=== PATIENT | male | born 1950 | race Caucasian/White ===

== ENCOUNTER 2018-07-19 15:37 | Inpatient (IN) | payer MEDICARE ==
[2018-07-19 20:44] VITALS: BMI 39.6
[2018-07-19] MEDS: oxyCODONE 10 mg Immediate Release Tab PO PRN (23:33)
[2018-07-20] MEDS: Insulin Detemir 100 Units/ml Inj SC SCH ×2 (00:07→21:23)
[2018-07-20] MEDS ORDERED: Insulin Lispro Mix 75/25 100 units/ml (HumaLog) 10ml SC SCH ×3 (07:30→16:30)
[2018-07-20] MEDS: Insulin Lispro Mix 75/25 100 units/ml (HumaLog) 10ml SC SCH ×2 (07:36→16:44)
[2018-07-20] MEDS: Insulin Regular 100 units/ml SC SCH ×4 (07:39→21:28)
[2018-07-20] MEDS: Enoxaparin 40 mg Syringe SC SCH (08:22)
[2018-07-20] MEDS: Multivitamin With Minerals Tab PO SCH (08:23)
[2018-07-20] MEDS: Calcium-Vit D 500 mg-200 Units Tab UD PO SCH (08:23)
[2018-07-20] MEDS: hydroCHLOROthiazide-Triamterene 25 mg-37.5 mg Cap UD PO SCH (08:24)
[2018-07-20] MEDS: oxyCODONE 10 mg Immediate Release Tab PO PRN ×3 (08:28→21:17)
--- NOTE | 2018-07-20 14:37 | RAD ---
Date of service: 07/20/2018 HISTORY: COMPARISON: None available. FINDINGS: BONES: Status post knee arthroplasty. JOINTS: Normal. No osteoarthritis. SOFT TISSUE: Normal. OTHER FINDINGS: None . IMPRESSION: Status post knee arthroplasty.
[2018-07-21] MEDS: Insulin Lispro Mix 75/25 100 units/ml (HumaLog) 10ml SC SCH ×2 (07:05→17:20)
[2018-07-21] MEDS: Insulin Regular 100 units/ml SC SCH ×4 (07:06→21:46)
[2018-07-21 08:24] LABS: HEMOGLOBIN 9.6 g/dL (12.0-18.0); MEAN CELL VOLUME 84.9 fl (80.0-94.0); MEAN CORPUSCULAR HEMOGLOBIN 28.5 pg (27.0-31.0); MEAN CORPUSCULAR HGB CONC 33.6 g/dL (33.0-37.0); RBC 3.38 Mil/uL (4.40-5.90); RED CELL DISTRIBUTION WIDTH 14.2 % (11.5-14.5); WHITE BLOOD COUNT 10.9 K/uL (4.8-10.8)
[2018-07-21 08:37] LABS: BLOOD UREA NITROGEN 15 mg/dl (9-20); CALCIUM 8.7 mg/dL (8.4-10.2); GFR NON-AFRICAN AMERICAN > 60
[2018-07-21] MEDS: oxyCODONE 10 mg Immediate Release Tab PO PRN ×3 (09:17→19:58)
[2018-07-21] MEDS: Enoxaparin 40 mg Syringe SC SCH (09:19)
[2018-07-21] MEDS: Multivitamin With Minerals Tab PO SCH (09:20)
[2018-07-21] MEDS: hydroCHLOROthiazide-Triamterene 25 mg-37.5 mg Cap UD PO SCH (09:20)
[2018-07-21] MEDS: Calcium-Vit D 500 mg-200 Units Tab UD PO SCH (09:20)
[2018-07-21] MEDS ORDERED: Alum-Mag Hydrox-Simethicone Susp (30 mL) PO PRN (16:49)
[2018-07-21] MEDS ORDERED: Potassium Chloride 20 mEq ER Tab PO ONE (17:23)
[2018-07-21] MEDS: Pantoprazole 40 mg EC Tab PO SCH (17:34)
--- NOTE | 2018-07-21 18:45 | HP ---
HISTORY OF PRESENT ILLNESS: This is a 67-year-old [place]ian male with history of multiple medical problems who underwent left total knee replacement and admitted to transitional care unit for rehabilitation. The patient denied to have any chest pain or shortness of breath. The patient had an uneventful postoperative course. REVIEW OF SYSTEMS: Other review of system is negative. ALLERGIES: NO KNOWN ALLERGIES. MEDICATIONS: Medications were reviewed as per MAR and ordered. SOCIAL HISTORY: Denied history of smoking, EtOH, or substance abuse. FAMILY HISTORY: Noncontributory. PAST MEDICAL HISTORY: Type 2 diabetes mellitus, hypertension, hypercholesterolemia, morbid obesity, and osteoarthritis. PHYSICAL EXAMINATION: GENERAL: The patient is in bed, not in any cardiopulmonary distress. VITAL SIGNS: Blood pressure 132/79, temperature 98.4, respiratory rate 20, and pulse 103. HEENT: Pupils equal, reactive to light. Normal-appearing mucosa of the conjunctivae, oropharynx and nasal membrane mucosa. NECK: Supple. No JVD. No carotid bruit. No lymph node. No thyromegaly. CHEST AND LUNGS: Bilateral symmetrical expansion. Good air exchange. No rales, no rhonchi. CARDIOVASCULAR: PMI not localized. S1, S2. No additional sounds. ABDOMEN: Normoactive bowel sounds. No tenderness. No organomegaly. No masses. EXTREMITIES: No cyanosis, no clubbing, no edema. Left knee is surgically dressed and in a knee brace. STRUCTURAL TECHNICIAN: Alert, awake, oriented x3 and no neurological deficit could be appreciated. ASSESSMENT: Status post left total knee replacement, hypertension, type 2 diabetes mellitus, hypercholesterolemia, morbid obesity, and osteoarthritis. PLAN: Continue current medications including the DVT prophylaxis and pain management. Accu-Cheks with insulin coverage as needed. Shabnam Waddell MD
[2018-07-21 19:08] LABS: ALB/GLOB RATIO 1.2 (1.0-2.1); ALBUMIN 4.3 g/dL (3.5-5.0); ALT/SGPT 38 U/L (21-72); AST/SGOT 45 U/L (17-59); BLOOD UREA NITROGEN 20 mg/dl (9-20); CALCIUM 9.3 mg/dL (8.4-10.2); GFR NON-AFRICAN AMERICAN > 60
[2018-07-21] MEDS: Insulin Detemir 100 Units/ml Inj SC SCH (21:49)
[2018-07-22] MEDS: Insulin Lispro Mix 75/25 100 units/ml (HumaLog) 10ml SC SCH ×2 (07:06→17:28)
[2018-07-22] MEDS: Insulin Regular 100 units/ml SC SCH ×4 (07:09→21:59)
[2018-07-22 08:15] VITALS: RESP 20
[2018-07-22] MEDS: Enoxaparin 40 mg Syringe SC SCH (09:17)
[2018-07-22] MEDS: Calcium-Vit D 500 mg-200 Units Tab UD PO SCH (09:18)
[2018-07-22] MEDS: Multivitamin With Minerals Tab PO SCH (09:19)
[2018-07-22] MEDS: hydroCHLOROthiazide-Triamterene 25 mg-37.5 mg Cap UD PO SCH (09:21)
[2018-07-22] MEDS: oxyCODONE 10 mg Immediate Release Tab PO PRN ×3 (09:25→23:49)
[2018-07-22] MEDS: Pantoprazole 40 mg EC Tab PO SCH (09:25)
--- NOTE | 2018-07-22 11:35 | CP.PCM.PN ---
Subjective - Date & Time of Evaluation Date of Evaluation: 07/22/18 Time of Evaluation: 08:00 - Subjective Subjective: Patient seen and examined at bedside comfortable. Pain well controlled. Tolerating PT well. No new complaints. Denies CP/SOB/fever/MIGUEL. Objective - Vital Signs/Intake and Output Vital Signs (last 24 hours): Temp Pulse Resp BP Pulse Ox 97.6 F 96 H 20 130/64 98 07/22/18 08:14 07/22/18 09:20 07/22/18 08:14 07/22/18 09:20 07/22/18 08:14 - Medications Medications: Current Medications Acetaminophen (Tylenol 325mg Tab) 650 mg PO Q6 PRN PRN Reason: Fever 101 and above Last Admin: 07/19/18 23:31 Dose: 650 mg Al Hydrox/Mg Hydrox/Simethicone (Maalox Plus 30 Ml) 30 ml PO Q12 PRN PRN Reason: Indigestion / Heartburn Last Admin: 07/21/18 17:19 Dose: 30 ml Amlodipine Besylate (Norvasc) 5 mg PO DAILY [facility] Last Admin: 07/22/18 09:20 Dose: 5 mg Atorvastatin Calcium (Lipitor) 20 mg PO HS [facility] Last Admin: 07/21/18 21:50 Dose: 20 mg Calcium/Vitamin D (Oyster Shell Calcium/Vitamin D 500 Mg-200 Iu) 1 tab PO DAILY [facility] Last Admin: 07/22/18 09:18 Dose: 1 tab Docusate Sodium (Colace) 100 mg PO BID [facility] Last Admin: 07/22/18 09:18 Dose: 100 mg Enalapril Maleate (Vasotec) 10 mg PO DAILY [facility] Last Admin: 07/22/18 09:18 Dose: 10 mg Enoxaparin Sodium (Lovenox) 40 mg SC DAILY [facility]; Protocol Last Admin: 07/22/18 09:17 Dose: 40 mg Finasteride (Proscar) [address] [facility] Last Admin: 07/21/18 21:50 Dose: 5 mg Insulin Detemir (Levemir) [address] [facility] Last Admin: 07/21/18 21:49 Dose: 20 units Insulin Human Regular (Humulin R) 0 units SC [facility]; Protocol Last Admin: 07/22/18 07:09 Dose: 3 units Insulin Lispro Protam/Lispro Human (Humalog Mix 75/25) 35 units SC ACD [facility] Last Admin: 07/21/18 17:20 Dose: 35 units Insulin Lispro Protam/Lispro Human (Humalog Mix 75/25) 10 units SC ACB [facility] Last Admin: 07/22/18 07:06 Dose: 10 units Lactulose (Enulose) 20 gm PO DAILY [facility] Last Admin: 07/22/18 09:20 Dose: 20 gm Metformin HCl (Glucophage) 850 mg PO TIDWM [facility] Last Admin: 07/22/18 08:30 Dose: 850 mg Multivitamins/Minerals (Therapeutic-M Tab) 1 tab PO DAILY [facility] Last Admin: 07/22/18 09:19 Dose: 1 tab Oxycodone HCl (Oxycodone Immediate Release Tab) 10 mg PO Q4H PRN PRN Reason: Pain, moderate (4-7) Last Admin: 07/22/18 09:25 Dose: 10 mg Pantoprazole Sodium (Protonix Ec Tab) 40 mg PO DAILY [facility] Last Admin: 07/22/18 09:25 Dose: 40 mg Sitagliptin Phosphate (Januvia) 100 mg PO DAILY [facility] Last Admin: 07/22/18 09:20 Dose: 100 mg Tamsulosin HCl (Flomax) 0.4 mg PO DAILY [facility] Last Admin: 07/22/18 09:18 Dose: 0.4 mg Triamterene/HCTZ (Dyazide 25 Mg-37.5 Mg) 1 cap PO DAILY [facility] Last Admin: 07/22/18 09:21 Dose: 1 cap Zolpidem Tartrate (Ambien) 5 mg PO HS PRN PRN Reason: Insomnia Last Admin: 07/21/18 23:49 Dose: 5 mg - Labs Labs: 07/21/18 07:00 07/21/18 18:13 - Extremities Exam Additional comments: L knee: Dressings CDI, mild swelling Hemovac drain site clean/dry wound CDI with tsering/dermabond sensation intact SP/DP/TN motor intact EHL/FHL/TA/G pedal pulses intact calves soft/NT b/l Assessment and Plan (1) Status post total left knee replacement Assessment & Plan: POD#5 s/p L TKA doing well -dry dressings changed -CPM and Knee imm as per order -PT/OT WBAT -above d/w Dr. Stark in agreement Status: Acute
[2018-07-22] MEDS ORDERED: Potassium Chloride 20 mEq ER Tab PO ONE (16:52)
--- NOTE | 2018-07-22 17:34 | CP.PCM.CON ---
History of Present Illness - History of Present Illness History of Present Illness: Dr Gonzalez PMR consultation on Andres Veronica, born 1950, who has been admitted to [facility] for RUI following a left TKR. Post op stable. + pain and + constipation. Had pain for about 18 months prior with failure of conservative care. Review of Systems - Constitutional Constitutional: absent: Anorexia, Chills, Daytime Sleepiness - EENT Eyes: absent: Change in Vision Nose/Mouth/Throat: absent: Nasal Congestion, Nasal Discharge - Cardiovascular Cardiovascular: absent: Chest Pain - Respiratory Respiratory: absent: Dyspnea, Hemoptysis - Gastrointestinal Gastrointestinal: Bloating, Constipation - Integumentary Integumentary: absent: Bleeding Lesions - Neurological Neurological: absent: Abnormal Movements, Confusion, Radicular Pain, Syncope Past Patient History - Past Medical History & Family History Past Medical History?: Yes - Past Social History Smoking Status: Former Smoker Alcohol: None Drugs: Denies Home Situation {Lives}: With Family (8 outside and 12 inside steps to bedroom) - CARDIAC Hx Hypertension: Yes - PULMONARY Hx Respiratory Disorders: No - NEUROLOGICAL Hx Neurological Disorder: No - HEENT Hx HEENT Problems: Yes Other/Comment: uses reading eyeglasses - RENAL Hx Chronic Kidney Disease: No - ENDOCRINE/METABOLIC Hx Diabetes Mellitus Type 2: Yes - HEMATOLOGICAL/ONCOLOGICAL Hx Blood Disorders: No Hx AIDS: No Hx Human Immunodeficiency Virus (HIV): No - INTEGUMENTARY Hx Dermatological Problems: No - MUSCULOSKELETAL/RHEUMATOLOGICAL Hx Arthritis: Yes - GASTROINTESTINAL Hx Gastrointestinal Disorders: Yes Hx Gall Bladder Disease: Yes - GENITOURINARY/GYNECOLOGICAL Hx Genitourinary Disorders: Yes Hx Prostate Problems: Yes (BPH) - PSYCHIATRIC Hx Substance Use: No - SURGICAL HISTORY Hx Surgeries: Yes Hx Cholecystectomy: Yes (lap aric) - ANESTHESIA Hx Anesthesia: Yes Hx Anesthesia Reactions: No Hx Malignant Hyperthermia: No Meds Allergies/Adverse Reactions: Allergies Allergy/AdvReac Type Severity Reaction Status Date / Time No Known Allergies Allergy Verified 07/10/18 12:11 - Medications Medications: Current Medications Acetaminophen (Tylenol 325mg Tab) 650 mg PO Q6 PRN PRN Reason: Fever 101 and above Last Admin: 07/19/18 23:31 Dose: 650 mg Al Hydrox/Mg Hydrox/Simethicone (Maalox Plus 30 Ml) 30 ml PO Q12 PRN PRN Reason: Indigestion / Heartburn Last Admin: 07/21/18 17:19 Dose: 30 ml Amlodipine Besylate (Norvasc) 5 mg PO DAILY [facility] Last Admin: 07/22/18 09:20 Dose: 5 mg Atorvastatin Calcium (Lipitor) 20 mg PO HS [facility] Last Admin: 07/21/18 21:50 Dose: 20 mg Calcium/Vitamin D (Oyster Shell Calcium/Vitamin D 500 Mg-200 Iu) 1 tab PO DAILY [facility] Last Admin: 07/22/18 09:18 Dose: 1 tab Docusate Sodium (Colace) 100 mg PO BID [facility] Last Admin: 07/22/18 17:28 Dose: 100 mg Enalapril Maleate (Vasotec) 10 mg PO DAILY [facility] Last Admin: 07/22/18 09:18 Dose: 10 mg Enoxaparin Sodium (Lovenox) 40 mg SC DAILY [facility]; Protocol Last Admin: 07/22/18 09:17 Dose: 40 mg Finasteride (Proscar) 5 mg PO HS [facility] Last Admin: 07/21/18 21:50 Dose: 5 mg Insulin Detemir (Levemir) 20 units SC HS [facility] Last Admin: 07/21/18 21:49 Dose: 20 units Insulin Human Regular (Humulin R) 0 units SC ACHS [facility]; Protocol Last Admin: 07/22/18 17:29 Dose: 3 units Insulin Lispro Protam/Lispro Human (Humalog Mix 75/25) 35 units SC ACD [facility] Last Admin: 07/22/18 17:28 Dose: 35 units Insulin Lispro Protam/Lispro Human (Humalog Mix 75/25) 10 units SC ACB [facility] Last Admin: 07/22/18 07:06 Dose: 10 units Lactulose (Enulose) 20 gm PO DAILY [facility] Last Admin: 07/22/18 09:20 Dose: 20 gm Metformin HCl (Glucophage) 850 mg PO TIDWM [facility] Last Admin: 07/22/18 17:28 Dose: 850 mg Multivitamins/Minerals (Therapeutic-M Tab) 1 tab PO DAILY [facility] Last Admin: 07/22/18 09:19 Dose: 1 tab Oxycodone HCl (Oxycodone Immediate Release Tab) 10 mg PO Q4H PRN PRN Reason: Pain, moderate (4-7) Last Admin: 07/22/18 09:25 Dose: 10 mg Pantoprazole Sodium (Protonix Ec Tab) 40 mg PO DAILY [facility] Last Admin: 07/22/18 09:25 Dose: 40 mg Sitagliptin Phosphate (Januvia) 100 mg PO DAILY [facility] Last Admin: 07/22/18 09:20 Dose: 100 mg Tamsulosin HCl (Flomax) 0.4 mg PO DAILY [facility] Last Admin: 07/22/18 09:18 Dose: 0.4 mg Triamterene/HCTZ (Dyazide 25 Mg-37.5 Mg) 1 cap PO DAILY [facility] Last Admin: 07/22/18 09:21 Dose: 1 cap Zolpidem Tartrate (Ambien) 5 mg PO HS PRN PRN Reason: Insomnia Last Admin: 07/21/18 23:49 Dose: 5 mg Physical Exam - Constitutional Appears: Non-toxic, No Acute Distress - Head Exam Head Exam: ATRAUMATIC, NORMAL INSPECTION, NORMOCEPHALIC - Eye Exam Eye Exam: EOMI - ENT Exam ENT Exam: Mucous Membranes Moist - Respiratory Exam Respiratory Exam: NORMAL BREATHING PATTERN - Cardiovascular Exam Cardiovascular Exam: REGULAR RHYTHM - GI/Abdominal Exam GI & Abdominal Exam: Distended. absent: Firm, Guarding - Extremities Exam Extremities exam: Negative for: calf tenderness - Neurological Exam Neurological exam: Alert, CN II-XII Intact, Oriented x3 - Psychiatric Exam Psychiatric exam: Normal Affect, Normal Mood Results - Vital Signs Recent Vital Signs: Last Vital Signs Temp 99.1 F 07/22/18 16:46 Pulse 105 H 07/22/18 16:46 Resp 20 07/22/18 16:46 BP 124/67 07/22/18 16:46 Pulse Ox 94 L 07/22/18 16:46 - Labs Result Diagrams: 07/21/18 07:00 07/21/18 18:13 Labs: Laboratory Results - last 24 hr 07/21/18 07/21/18 07/22/18 18:13 21:05 05:25 Sodium 130 L Potassium 3.8 Chloride 84 L Carbon Dioxide 29 Anion Gap 21 H BUN 20 Creatinine 1.2 Est GFR ( Amer) > 60 Est GFR (Non-Af Amer) > 60 POC Glucose (mg/dL) 221 H 206 H Random Glucose 372 H Calcium 9.3 Magnesium 1.8 Total Bilirubin 0.8 AST 45 ALT 38 Alkaline Phosphatase 74 Total Protein 7.9 Albumin 4.3 Globulin 3.7 Albumin/Globulin Ratio 1.2 07/22/18 07/22/18 11:04 15:33 Sodium Potassium Chloride Carbon Dioxide Anion Gap BUN Creatinine Est GFR ( Amer) Est GFR (Non-Af Amer) POC Glucose (mg/dL) 315 H 241 H Random Glucose Calcium Magnesium Total Bilirubin AST ALT Alkaline Phosphatase Total Protein Albumin Globulin Albumin/Globulin Ratio Assessment & Plan - Assessment and Plan (Free Text) Plan: PT/OT to continue to help increase functional independence Pain: I will review medications and make appropriate alterations as necessary Vascular: no evidence of DVT GI: + constipation. Getting fleets now Patient continues to be an excellent TCU rehabilitation candidate and will have continued focused PT, OT and recreational therapy to help facilitate a safe and appropriate d/c plan
[2018-07-22] MEDS: Insulin Detemir 100 Units/ml Inj SC SCH (22:02)
[2018-07-23] MEDS: Insulin Regular 100 units/ml SC SCH ×4 (07:04→21:30)
[2018-07-23] MEDS: Insulin Lispro Mix 75/25 100 units/ml (HumaLog) 10ml SC SCH ×2 (07:05→16:50)
[2018-07-23] MEDS: oxyCODONE 10 mg Immediate Release Tab PO PRN ×3 (08:19→20:44)
[2018-07-23] MEDS: hydroCHLOROthiazide-Triamterene 25 mg-37.5 mg Cap UD PO SCH (08:22)
[2018-07-23] MEDS: Multivitamin With Minerals Tab PO SCH (08:22)
[2018-07-23] MEDS: Enoxaparin 40 mg Syringe SC SCH (08:22)
[2018-07-23] MEDS: Calcium-Vit D 500 mg-200 Units Tab UD PO SCH (08:23)
[2018-07-23] MEDS: Pantoprazole 40 mg EC Tab PO SCH (08:25)
--- NOTE | 2018-07-23 18:28 | PN ---
DATE: 07/22/2018 SUBJECTIVE: The patient was seen on 07/22/2018. PHYSICAL EXAMINATION: VITAL SIGNS: He was not in any cardiopulmonary distress with blood pressure 115/65, temperature 99.1, respiratory rate 20 and pulse 100. HEENT: Pupils equal, reactive to light. Normal-appearing mucosa of the conjunctivae, oropharynx and nasal membrane mucosa. NECK: Supple. No JVD. No carotid bruit. No lymph node. No thyromegaly. CHEST AND LUNGS: Bilateral symmetrical expansion. Good air exchange. No rales, no rhonchi. CARDIOVASCULAR SYSTEM: PMI not localized. S1, S2. No additional sounds. ABDOMEN: Normoactive bowel sounds. No tenderness. No organomegaly. No masses. EXTREMITIES: No cyanosis, no clubbing, no edema. MEDICAL EXAMINER: Alert, awake, oriented x3. No neurological deficit could be appreciated. ASSESSMENT: Status post left total knee replacement, hypertension, type 2 diabetes mellitus, morbid obesity constipation secondary to narcotic medications. PLAN We will do Fleet's enema. Continue current medications including DVT prophylaxis and follow orthopedic consult. Continue physical therapy and occupational therapy. Shabnam Waddell MD
[2018-07-23] MEDS: Insulin Detemir 100 Units/ml Inj SC SCH (21:33)
[2018-07-24] MEDS: Insulin Regular 100 units/ml SC SCH ×4 (06:59→21:51)
[2018-07-24] MEDS: Insulin Lispro Mix 75/25 100 units/ml (HumaLog) 10ml SC SCH ×2 (07:01→17:09)
[2018-07-24] MEDS: hydroCHLOROthiazide-Triamterene 25 mg-37.5 mg Cap UD PO SCH (08:15)
[2018-07-24] MEDS: Calcium-Vit D 500 mg-200 Units Tab UD PO SCH (08:16)
[2018-07-24] MEDS: Enoxaparin 40 mg Syringe SC SCH (08:16)
[2018-07-24] MEDS: Multivitamin With Minerals Tab PO SCH (08:17)
[2018-07-24] MEDS: oxyCODONE 10 mg Immediate Release Tab PO PRN ×3 (08:22→22:30)
[2018-07-24] MEDS: Pantoprazole 40 mg EC Tab PO SCH (08:33)
--- NOTE | 2018-07-24 17:31 | CP.PCM.PN ---
Subjective - Date & Time of Evaluation Date of Evaluation: 07/24/18 Time of Evaluation: 15:00 - Subjective Subjective: Patient seen and examined at bedside comfortable. Pain well controlled. Tolerating PT well. No other complaints. Objective - Vital Signs/Intake and Output Vital Signs (last 24 hours): Temp Pulse Resp BP Pulse Ox 97.9 F 96 H 20 110/57 L 94 L 07/24/18 16:45 07/24/18 16:45 07/24/18 16:45 07/24/18 16:45 07/24/18 16:45 - Medications Medications: Current Medications Acetaminophen (Tylenol 325mg Tab) 650 mg PO Q6 PRN PRN Reason: Fever 101 and above Last Admin: 07/19/18 23:31 Dose: 650 mg Al Hydrox/Mg Hydrox/Simethicone (Maalox Plus 30 Ml) 30 ml PO Q12 PRN PRN Reason: Indigestion / Heartburn Last Admin: 07/21/18 17:19 Dose: 30 ml Amlodipine Besylate (Norvasc) 5 mg PO DAILY [facility] Last Admin: 07/24/18 08:16 Dose: 5 mg Atorvastatin Calcium (Lipitor) 20 mg PO HS [facility] Last Admin: 07/23/18 21:33 Dose: 20 mg Calcium/Vitamin D (Oyster Shell Calcium/Vitamin D 500 Mg-200 Iu) 1 tab PO DAILY [facility] Last Admin: 07/24/18 08:16 Dose: 1 tab Docusate Sodium (Colace) 100 mg PO BID [facility] Last Admin: 07/24/18 17:09 Dose: 100 mg Enalapril Maleate (Vasotec) 10 mg PO DAILY [facility] Last Admin: 07/24/18 08:17 Dose: 10 mg Enoxaparin Sodium (Lovenox) 40 mg SC DAILY [facility]; Protocol Last Admin: 07/24/18 08:16 Dose: 40 mg Finasteride (Proscar) 5 mg PO HS [facility] Last Admin: 07/23/18 21:33 Dose: 5 mg Insulin Detemir (Levemir) 20 units SC HS [facility] Last Admin: 07/23/18 21:33 Dose: 20 units Insulin Human Regular (Humulin R) 0 units SC ACHS [facility]; Protocol Last Admin: 07/24/18 17:09 Dose: 3 units Insulin Lispro Protam/Lispro Human (Humalog Mix 75/25) 35 units SC ACD [facility] Last Admin: 07/24/18 17:09 Dose: 35 units Insulin Lispro Protam/Lispro Human (Humalog Mix 75/25) 10 units SC ACB [facility] Last Admin: 07/24/18 07:01 Dose: 10 units Lactulose (Enulose) 20 gm PO DAILY [facility] Last Admin: 07/24/18 12:15 Dose: Not Given Metformin HCl (Glucophage) 850 mg PO TIDWM [facility] Last Admin: 07/24/18 17:10 Dose: 850 mg Multivitamins/Minerals (Therapeutic-M Tab) 1 tab PO DAILY [facility] Last Admin: 07/24/18 08:17 Dose: 1 tab Oxycodone HCl (Oxycodone Immediate Release Tab) 10 mg PO Q4H PRN PRN Reason: Pain, moderate (4-7) Last Admin: 07/24/18 13:08 Dose: 10 mg Pantoprazole Sodium (Protonix Ec Tab) 40 mg PO DAILY [facility] Last Admin: 07/24/18 08:33 Dose: 40 mg Sitagliptin Phosphate (Januvia) 100 mg PO DAILY [facility] Last Admin: 07/24/18 08:16 Dose: 100 mg Tamsulosin HCl (Flomax) 0.4 mg PO DAILY [facility] Last Admin: 07/24/18 08:16 Dose: 0.4 mg Triamterene/HCTZ (Dyazide 25 Mg-37.5 Mg) 1 cap PO DAILY [facility] Last Admin: 07/24/18 08:15 Dose: 1 cap Zolpidem Tartrate (Ambien) 5 mg PO HS PRN PRN Reason: Insomnia Last Admin: 07/23/18 23:24 Dose: 5 mg - Labs Labs: 07/21/18 07:00 07/21/18 18:13 - Extremities Exam Additional comments: L knee: Dressings CDI, mild swelling Hemovac drain site clean/dry wound CDI with tsering/dermabond sensation intact SP/DP/TN motor intact EHL/FHL/TA/G pedal pulses intact calves soft/NT b/l Assessment and Plan (1) Status post total left knee replacement Assessment & Plan: POD#7 s/p L TKA doing well -knee imm on only when ambulating -CPM as per order -PT/OT WBAT -DVT ppx -above d/w Dr. Stark in agreement Status: Acute
[2018-07-25] MEDS: Insulin Detemir 100 Units/ml Inj SC SCH ×2 (00:40→22:06)
[2018-07-25 06:55] LABS: HEMOGLOBIN 9.2 g/dL (12.0-18.0); MEAN CELL VOLUME 84.2 fl (80.0-94.0); MEAN CORPUSCULAR HEMOGLOBIN 28.4 pg (27.0-31.0); MEAN CORPUSCULAR HGB CONC 33.8 g/dL (33.0-37.0); RBC 3.23 Mil/uL (4.40-5.90); RED CELL DISTRIBUTION WIDTH 14.3 % (11.5-14.5); WHITE BLOOD COUNT 11.4 K/uL (4.8-10.8)
[2018-07-25] MEDS: Insulin Lispro Mix 75/25 100 units/ml (HumaLog) 10ml SC SCH ×2 (07:30→16:58)
[2018-07-25 07:32] LABS: ALB/GLOB RATIO 1.1 (1.0-2.1); ALBUMIN 3.8 g/dL (3.5-5.0); ALT/SGPT 57 U/L (21-72); AST/SGOT 50 U/L (17-59); BLOOD UREA NITROGEN 12 mg/dl (9-20); CALCIUM 8.4 mg/dL (8.4-10.2); GFR NON-AFRICAN AMERICAN > 60
[2018-07-25] MEDS: hydroCHLOROthiazide-Triamterene 25 mg-37.5 mg Cap UD PO SCH (08:26)
[2018-07-25] MEDS: Multivitamin With Minerals Tab PO SCH (08:26)
[2018-07-25] MEDS: Calcium-Vit D 500 mg-200 Units Tab UD PO SCH (08:26)
[2018-07-25] MEDS: Insulin Regular 100 units/ml SC SCH ×3 (08:27→16:59)
[2018-07-25] MEDS: Pantoprazole 40 mg EC Tab PO SCH (08:29)
[2018-07-25] MEDS: Enoxaparin 40 mg Syringe SC SCH (08:30)
[2018-07-25] MEDS: oxyCODONE 10 mg Immediate Release Tab PO PRN ×2 (09:14→15:57)
--- NOTE | 2018-07-25 14:03 | CP.PCM.PN ---
Subjective - Date & Time of Evaluation Date of Evaluation: 07/25/18 Time of Evaluation: 14:02 - Subjective Subjective: Patient seen in PT, doing well leg immobilizer in place denies sob/cp has controlled pain with therapy good po intake denies constipation continue current care Objective - Vital Signs/Intake and Output Vital Signs (last 24 hours): Temp Pulse Resp BP Pulse Ox 98.1 F 85 20 126/63 92 L 07/25/18 08:15 07/25/18 08:29 07/25/18 08:15 07/25/18 08:29 07/25/18 08:15 - Medications Medications: Current Medications Acetaminophen (Tylenol 325mg Tab) 650 mg PO Q6 PRN PRN Reason: Fever 101 and above Last Admin: 07/19/18 23:31 Dose: 650 mg Al Hydrox/Mg Hydrox/Simethicone (Maalox Plus 30 Ml) 30 ml PO Q12 PRN PRN Reason: Indigestion / Heartburn Last Admin: 07/21/18 17:19 Dose: 30 ml Amlodipine Besylate (Norvasc) 5 mg PO DAILY [facility] Last Admin: 07/25/18 08:29 Dose: 5 mg Atorvastatin Calcium (Lipitor) 20 mg PO HS [facility] Last Admin: 07/24/18 22:02 Dose: 20 mg Calcium/Vitamin D (Oyster Shell Calcium/Vitamin D 500 Mg-200 Iu) 1 tab PO DAILY [facility] Last Admin: 07/25/18 08:26 Dose: 1 tab Docusate Sodium (Colace) 100 mg PO BID [facility] Last Admin: 07/25/18 08:28 Dose: 100 mg Enalapril Maleate (Vasotec) 10 mg PO DAILY [facility] Last Admin: 07/25/18 08:26 Dose: 10 mg Enoxaparin Sodium (Lovenox) 40 mg SC DAILY [facility]; Protocol Last Admin: 07/25/18 08:30 Dose: 40 mg Finasteride (Proscar) 5 mg PO [facility] Last Admin: 07/24/18 22:02 Dose: 5 mg Insulin Detemir (Levemir) 20 units SC [facility] Last Admin: 07/25/18 00:40 Dose: 20 units Insulin Human Regular (Humulin R) 0 units SC [facility]; Protocol Last Admin: 07/25/18 12:00 Dose: 3 units Insulin Lispro Protam/Lispro Human (Humalog Mix 75/25) 35 units SC ACD [facility] Last Admin: 07/24/18 17:09 Dose: 35 units Insulin Lispro Protam/Lispro Human (Humalog Mix 75/25) 10 units SC ACB [facility] Last Admin: 07/25/18 07:30 Dose: 10 units Lactulose (Enulose) 20 gm PO DAILY [facility] Last Admin: 07/25/18 08:29 Dose: Not Given Metformin HCl (Glucophage) 850 mg PO TIDWM [facility] Last Admin: 07/25/18 12:00 Dose: 850 mg Multivitamins/Minerals (Therapeutic-M Tab) 1 tab PO DAILY [facility] Last Admin: 07/25/18 08:26 Dose: 1 tab Oxycodone HCl (Oxycodone Immediate Release Tab) 10 mg PO Q4H PRN PRN Reason: Pain, moderate (4-7) Last Admin: 07/25/18 09:14 Dose: 10 mg Pantoprazole Sodium (Protonix Ec Tab) 40 mg PO DAILY [facility] Last Admin: 07/25/18 08:29 Dose: 40 mg Potassium Chloride (K-Dur 20 Meq Er Tab) 40 meq PO ONCE ONE Stop: 07/25/18 13:08 Sitagliptin Phosphate (Januvia) 100 mg PO DAILY [facility] Last Admin: 07/25/18 08:26 Dose: 100 mg Tamsulosin HCl (Flomax) 0.4 mg PO DAILY [facility] Last Admin: 07/25/18 08:30 Dose: 0.4 mg Triamterene/HCTZ (Dyazide 25 Mg-37.5 Mg) 1 cap PO DAILY [facility] Last Admin: 07/25/18 08:26 Dose: 1 cap Zolpidem Tartrate (Ambien) 10 mg PO HS PRN PRN Reason: insomnia - Labs Labs: 07/25/18 06:40 07/25/18 06:40
[2018-07-25] MEDS ORDERED: Potassium Chloride 20 mEq ER Tab PO ONE (14:15)
--- NOTE | 2018-07-25 16:06 | CP.PCM.PN ---
Subjective - Date & Time of Evaluation Date of Evaluation: 07/25/18 Time of Evaluation: 16:03 - Subjective Subjective: Patient states pain is getting better, tolerating PT well. No new complaints. Objective - Vital Signs/Intake and Output Vital Signs (last 24 hours): Temp Pulse Resp BP Pulse Ox 98.1 F 85 20 126/63 92 L 07/25/18 08:15 07/25/18 08:29 07/25/18 08:15 07/25/18 08:29 07/25/18 08:15 - Medications Medications: Current Medications Acetaminophen (Tylenol 325mg Tab) 650 mg PO Q6 PRN PRN Reason: Fever 101 and above Last Admin: 07/19/18 23:31 Dose: 650 mg Al Hydrox/Mg Hydrox/Simethicone (Maalox Plus 30 Ml) 30 ml PO Q12 PRN PRN Reason: Indigestion / Heartburn Last Admin: 07/21/18 17:19 Dose: 30 ml Amlodipine Besylate (Norvasc) 5 mg PO DAILY [facility] Last Admin: 07/25/18 08:29 Dose: 5 mg Atorvastatin Calcium (Lipitor) 20 mg PO HS [facility] Last Admin: 07/24/18 22:02 Dose: 20 mg Calcium/Vitamin D (Oyster Shell Calcium/Vitamin D 500 Mg-200 Iu) 1 tab PO DAILY [facility] Last Admin: 07/25/18 08:26 Dose: 1 tab Docusate Sodium (Colace) 100 mg PO BID [facility] Last Admin: 07/25/18 08:28 Dose: 100 mg Enalapril Maleate (Vasotec) 10 mg PO DAILY [facility] Last Admin: 07/25/18 08:26 Dose: 10 mg Enoxaparin Sodium (Lovenox) 40 mg SC DAILY [facility]; Protocol Last Admin: 07/25/18 08:30 Dose: 40 mg Finasteride (Proscar) 5 mg PO HS [facility] Last Admin: 07/24/18 22:02 Dose: 5 mg Insulin Detemir (Levemir) 20 units SC HS [facility] Last Admin: 07/25/18 00:40 Dose: 20 units Insulin Human Regular (Humulin R) 0 units SC ACHS [facility]; Protocol Last Admin: 07/25/18 12:00 Dose: 3 units Insulin Lispro Protam/Lispro Human (Humalog Mix 75/25) 35 units SC ACD [facility] Last Admin: 07/24/18 17:09 Dose: 35 units Insulin Lispro Protam/Lispro Human (Humalog Mix 75/25) 10 units SC ACB [facility] Last Admin: 07/25/18 07:30 Dose: 10 units Lactulose (Enulose) 20 gm PO DAILY [facility] Last Admin: 07/25/18 08:29 Dose: Not Given Metformin HCl (Glucophage) 850 mg PO TIDWM [facility] Last Admin: 07/25/18 12:00 Dose: 850 mg Multivitamins/Minerals (Therapeutic-M Tab) 1 tab PO DAILY [facility] Last Admin: 07/25/18 08:26 Dose: 1 tab Oxycodone HCl (Oxycodone Immediate Release Tab) 10 mg PO Q4H PRN PRN Reason: Pain, moderate (4-7) Last Admin: 07/25/18 15:57 Dose: 10 mg Pantoprazole Sodium (Protonix Ec Tab) 40 mg PO DAILY [facility] Last Admin: 07/25/18 08:29 Dose: 40 mg Sitagliptin Phosphate (Januvia) 100 mg PO DAILY [facility] Last Admin: 07/25/18 08:26 Dose: 100 mg Tamsulosin HCl (Flomax) 0.4 mg PO DAILY [facility] Last Admin: 07/25/18 08:30 Dose: 0.4 mg Triamterene/HCTZ (Dyazide 25 Mg-37.5 Mg) 1 cap PO DAILY [facility] Last Admin: 07/25/18 08:26 Dose: 1 cap Zolpidem Tartrate (Ambien) 10 mg PO HS PRN PRN Reason: insomnia - Labs Labs: 07/25/18 06:40 07/25/18 06:40 - Extremities Exam Additional comments: LLE: dressing changed. Incision intact, no erythema, no drainage, dry. +ROM ankel/toes, sensation intact, +DP/PT pulses calves soft NT neg homans Assessment and Plan (1) Primary osteoarthritis of left knee Assessment & Plan: POD#8 s/p left TKR ortho stable, plan d/c home tomorrow continue lovenox knee immob for ambulation per Dr. Stark f/u at scheduled appt d/w Dr. Stark, agrees with abvoe Status: Acute
[2018-07-25] MEDS: Oxycodone/Acetaminophen 5/325 mg Tab PO PRN (22:26)
[2018-07-26] MEDS: Insulin Regular 100 units/ml SC SCH ×3 (00:46→12:30)
[2018-07-26] MEDS: Insulin Lispro Mix 75/25 100 units/ml (HumaLog) 10ml SC SCH (07:51)
[2018-07-26] MEDS: Pantoprazole 40 mg EC Tab PO SCH (08:00)
[2018-07-26 08:01] VITALS: BP 123/65; PULSE 88
[2018-07-26] MEDS: hydroCHLOROthiazide-Triamterene 25 mg-37.5 mg Cap UD PO SCH (08:01)
[2018-07-26 08:07] VITALS: TEMP 97.9; O2SAT 91
[2018-07-26] MEDS: Calcium-Vit D 500 mg-200 Units Tab UD PO SCH (09:37)
[2018-07-26] MEDS: Multivitamin With Minerals Tab PO SCH (09:37)
[2018-07-26] MEDS ORDERED: Enoxaparin 40 mg Syringe SC SCH (09:45)
[2018-07-26] MEDS: Oxycodone/Acetaminophen 5/325 mg Tab PO PRN (12:17)
--- NOTE | 2018-07-27 17:25 | PN ---
DATE: 07/24/2018 SUBJECTIVE: The patient was seen on 07/24/2018. He was not in any cardiopulmonary distress and the patient moved his bowel, had a good bowel movement. PHYSICAL EXAMINATION: VITAL SIGNS: The blood pressure was 110/57, temperature 97.9, respiratory rate 20 and pulse 90. HEENT: Pupils equal, reactive to light. Normal-appearing mucosa of the conjunctivae, oropharynx and nasal membrane mucosa. NECK: Supple. No JVD. No carotid bruit. No lymph node. No thyromegaly. CHEST AND LUNGS: Bilateral symmetrical expansion. Good air exchange. No rales, no rhonchi. CARDIOVASCULAR: PMI not localized. S1, S2. No additional sounds. ABDOMEN: Normoactive bowel sounds. No tenderness. No organomegaly. No masses. EXTREMITIES: No cyanosis, no clubbing, no edema. CORPORATE MANAGER: Alert, awake, oriented x2. No neurological deficit could be appreciated. ASSESSMENT: Status post left total knee replacement, hypertension and type 2 diabetes mellitus with hyperglycemia. PLAN: Continue pain management, DVT prophylaxis, physical therapy and laxatives as needed. Discharge planning on 07/26/2018. Shabnam Waddell MD
--- NOTE | 2018-07-28 06:25 | DS ---
The patient was discharged on 07/26/2018. He was not in any cardiopulmonary distress and pain was controlled. Blood pressure was 123/65, temperature 97.9, respiratory rate 20, and pulse 88. REASON FOR ADMISSION: This is a 68-year-old [place] male who was admitted after left total knee replacement for rehabilitation. COURSE OF HOSPITALIZATION: The patient was admitted to Transitional Care Unit in [facility], and he was cooperative with physical therapy and occupational therapy. The patient was continued on his medications including pain medications, laxatives, and DVT prophylaxis by Lovenox. The patient was discharged in stable condition to follow with Orthopedic Surgery, Dr. Stark, and his primary care physician, Dr. Sun. The patient was discharged in a stable condition to continue the current medications in the hospital. FINAL DIAGNOSES: Status post left total knee replacement, morbid obesity, osteoarthritis, hypertension, type 2 diabetes mellitus with hyperglycemia. Shabnam Waddell MD
== END 2018-07-26 12:35 | disposition home or self-care (01) | DRG 561 ==
LOC: H.TCU 20:46
PROVIDERS: ADMIT Internal Medicine; ATTEND Internal Medicine
PROC: F07Z9FZ Gait Training/Functional Ambulation Treatment using Assistive, Adaptive, Supportive or Protective Equipment (ICD-10-PCS; principal; 2018-07-19)
PROC: F08Z4FZ Home Management Treatment using Assistive, Adaptive, Supportive or Protective Equipment (ICD-10-PCS; 2018-07-19)
PROC: F07L6FZ Therapeutic Exercise Treatment of Musculoskeletal System - Lower Back / Lower Extremity using Assistive, Adaptive, Supportive or Protective Equipment (ICD-10-PCS; 2018-07-20)
DX: Z47.1 Aftercare following joint replacement surgery (principal); Z96.652 Presence of left artificial knee joint; M17.12 Unilateral primary osteoarthritis, left knee; E11.65 Type 2 diabetes mellitus with hyperglycemia; I10 Essential (primary) hypertension; E78.00 Pure hypercholesterolemia, unspecified; E66.01 Morbid (severe) obesity due to excess calories; K59.03 Drug induced constipation; T40.605A Adverse effect of unspecified narcotics, initial encounter; Z68.39 Body mass index [BMI] 39.0-39.9, adult; Z87.891 Personal history of nicotine dependence